=== PATIENT | female | born 1965 ===

== ENCOUNTER 2017-10-18 07:08 | Observation (INO) | payer OTHER ==
[2017-10-18] MEDS ORDERED: Sodium Chloride 0.9% 1,000 ML IV STA (08:06)
--- NOTE | 2017-10-18 08:10 | ED PDOC ---
HPI: Influenza Time Seen by Provider: 10/18/17 07:38 Chief Complaint: Cough, Cold, Congestion Past Medical History Vital Signs: Last Vital Signs Temp 97 F L 10/18/17 07:33 Pulse 78 10/18/17 07:33 Resp 17 10/18/17 07:33 BP 155/81 H 10/18/17 07:33 Pulse Ox 98 10/18/17 07:33 - Medical History PMH: HTN Denies: Chronic Kidney Disease - Family History Family History: States: Hypertension - Home Medications Home Medications: Ambulatory Orders Medication Instructions Recorded Lisinopril [Zestril] 10 mg PO DAILY #30 tablet 01/10/16 [place]-3 Fatty Acids/Fish Oil [Fish 1 cap PO DAILY 01/10/16 Oil 1,000 mg Capsule] - Allergies Allergies/Adverse Reactions: Allergies Allergy/AdvReac Type Severity Reaction Status Date / Time No Known Allergies Allergy Verified 10/18/17 07:33 - ECG O2 Sat by Pulse Oximetry: 98 Disposition - Disposition
--- NOTE | 2017-10-18 08:12 | ED PDOC ---
HPI: Chest Pain Time Seen by Provider: 10/18/17 07:38 Chief Complaint (Nursing): Cough, Cold, Congestion Chief Complaint (Provider): Chest Pain and Headache History Per: Patient History/Exam Limitations: no limitations Onset/Duration Of Symptoms: Days (x yesterday) Current Symptoms Are (Timing): Still Present Additional Complaint(s): Ms. Woods is a 52 year old female who presents to the ED complaining of headache and chest pain since yesterday. Patient states she ran out of her medications for her high blood pressure since Thursday (3 days ago). Denies nausea , vomiting, diarrhea, respiratory problems, leg pain, abdominal pain. Patient states she is pre-diabetic. Denies allergies to any medications. Headaches is mild and frontal. No numbness, tingles, weakness. PMD: No Family Provider Past Medical History Reviewed: Historical Data, Nursing Documentation, Vital Signs Vital Signs: Last Vital Signs Temp 97 F L 10/18/17 07:33 Pulse 78 10/18/17 07:33 Resp 17 10/18/17 07:33 BP 155/81 H 10/18/17 07:33 Pulse Ox 98 10/18/17 10:36 - Medical History PMH: Diabetes (Pre-Diabetic), HTN Denies: Chronic Kidney Disease - Surgical History Surgical History: No Surg Hx - Family History Family History: States: Hypertension - Home Medications Home Medications: Ambulatory Orders Medication Instructions Recorded Lisinopril [Zestril] 10 mg PO DAILY #30 tablet 01/10/16 [place]-3 Fatty Acids/Fish Oil [Fish 1 cap PO DAILY 01/10/16 Oil 1,000 mg Capsule] - Allergies Allergies/Adverse Reactions: Allergies Allergy/AdvReac Type Severity Reaction Status Date / Time No Known Allergies Allergy Verified 10/18/17 07:33 Review of Systems ROS Statement: Except As Marked, All Systems Reviewed And Found Negative Cardiovascular: Positive for: Chest Pain Respiratory: Negative for: Cough, Shortness of Breath Gastrointestinal: Negative for: Nausea, Vomiting, Abdominal Pain, Diarrhea Musculoskeletal: Negative for: Leg Pain Neurological: Positive for: Headache Physical Exam - Reviewed Nursing Documentation Reviewed: Yes Vital Signs Reviewed: Yes - Physical Exam Appears: Positive for: Non-toxic Head Exam: Positive for: ATRAUMATIC, NORMAL INSPECTION, NORMOCEPHALIC Skin: Positive for: Normal Color, Warm, Dry Eye Exam: Positive for: Normal appearance, EOMI, PERRL ENT: Positive for: Normal ENT Inspection Neck: Positive for: Normal Cardiovascular/Chest: Positive for: Regular Rate, Rhythm Respiratory: Positive for: Normal Breath Sounds. Negative for: Respiratory Distress Gastrointestinal/Abdominal: Positive for: Normal Exam, Soft. Negative for: Tenderness Back: Positive for: Normal Inspection Extremity: Positive for: Normal ROM. Negative for: Deformity Neurologic/Psych: Positive for: Alert, Oriented (x 3) - Laboratory Results Result Diagrams: 10/18/17 08:05 10/18/17 08:05 Interpretation Of Abn Labs: 3.4 k - ECG ECG: Positive for: Interpreted By Me, Viewed By Me ECG Rhythm: Positive for: Normal QRS, Normal ST Segment, Sinus Rhythm O2 Sat by Pulse Oximetry: 98 (RA) Pulse Ox Interpretation: Normal - Radiology X-Ray: Read By Radiologist X-Ray Interpretation: No Acute Disease - Progress ED Course And Treament: 1046: Stable. AAOx3. Pain free. Will eval for acs. [facility] resident will admit for eval. Medical Decision Making Medical Decision Making: Time: 08:05 Plan: - EKG - CMP - Troponin I - CBC - Partial Thromboplastin Time - Prothrombin Time - Portable Chest X-Ray - Aspirin 325 mg PO ONCE - Sodium Chloride 0.9% 1,000 ml IV 1,000 mls/hr Time: 09:11 Portable Chest X-Ray FINDINGS: LUNGS: Left apical pleural thickening with adjacent fibronodular scarring changes ; rule out prior exposure to granulomatous disease process PLEURA: No significant pleural effusion identified, no pneumothorax apparent. CARDIOVASCULAR: Heart appears enlarged. OSSEOUS STRUCTURES: No significant abnormalities. VISUALIZED UPPER ABDOMEN: Normal. OTHER FINDINGS: None. IMPRESSION: Persistent left apical pleural thickening and adjacent fibronodular scarring changes left lung unchanged. Rule out prior exposure to granulomatous disease process. Scribe Attestation: Documented by Noman Cortes, acting as a scribe for Marco A Walsh MD. Provider Scribe Attestation: All medical record entries made by the Scribe were at my direction and personally dictated by me. I have reviewed the chart and agree that the record accurately reflects my personal performance of the history, physical exam, medical decision making, and the department course for this patient. I have also personally directed, reviewed, and agree with the discharge instructions and disposition. Disposition - Clinical Impression Clinical Impression: Chest pain - Patient ED Disposition Is Patient to be Admitted: Yes Counseled Patient/Family Regarding: Studies Performed, Diagnosis - Disposition Disposition Time: 10:47 Condition: FAIR - Pt Status Changed To: Hospital Disposition Of: Observation - POA Present On Arrival: None
[2017-10-18 08:28] LABS: ALBUMIN 4.1 g/dL (3.5-5.0); ALT/SGPT 42 U/L (9-52); AST/SGOT 23 U/L (14-36); BLOOD UREA NITROGEN 17 mg/dl (7-17); CALCIUM 9.3 mg/dL (8.4-10.2); GFR AFRICAN-AMERICAN > 60; GFR NON-AFRICAN AMERICAN > 60
[2017-10-18 08:29] LABS: BASO # 0.1 K/uL (0.0-0.2); BASO % 0.8 % (0.0-2.0); EOS # 0.4 K/uL (0.0-0.7); EOS % 4.8 % (0.0-4.0); HEMOGLOBIN 13.4 g/dL (12.0-16.0); LYMPH # 2.8 K/uL (1.0-4.3); LYMPH % 32.9 % (20.0-40.0); MEAN CELL VOLUME 88.5 fl (81.0-99.0); MEAN CORPUSCULAR HEMOGLOBIN 29.9 pg (27.0-31.0); MEAN CORPUSCULAR HGB CONC 33.8 g/dL (33.0-37.0); MEAN PLATELET VOLUME 8.7 fl (7.2-11.7); MONO # 0.6 K/uL (0.0-0.8); MONO % 6.6 % (0.0-10.0); NEUT # 4.6 K/uL (1.8-7.0); NEUT % 54.9 % (50.0-75.0); NRBC % 0.1 % (0.0-0.0); RBC 4.49 Mil/uL (3.80-5.20); WHITE BLOOD COUNT 8.4 K/uL (4.8-10.8)
[2017-10-18 08:34] LABS: PROTHROMBIN TIME 10.3 Seconds (9.8-13.1)
[2017-10-18 08:35] LABS: INR 0.9 (0.9-1.2)
--- NOTE | 2017-10-18 09:12 | RAD ---
HISTORY: chest pain COMPARISON: Comparison chest 01/10/2016 FINDINGS: LUNGS: Left apical pleural thickening with adjacent fibronodular scarring changes ; rule out prior exposure to granulomatous disease process PLEURA: No significant pleural effusion identified, no pneumothorax apparent. CARDIOVASCULAR: Heart appears enlarged. OSSEOUS STRUCTURES: No significant abnormalities. VISUALIZED UPPER ABDOMEN: Normal. OTHER FINDINGS: None. IMPRESSION: Persistent left apical pleural thickening and adjacent fibronodular scarring changes left lung unchanged. Rule out prior exposure to granulomatous disease process.
[2017-10-18] MEDS ORDERED: Potassium Chloride 20 mEq ER Tab PO ONE ×2 (10:32→12:11)
--- NOTE | 2017-10-18 12:46 | CP.PCM.HP ---
History of Present Illness - History of Present Illness History of Present Illness: 52 y/o female with history of HTN on 2 medications (lisinopril 20mg and Chlorthalidone 25mg) presenting to ED with complaints of headache and chest pain that started yesterday because she has not been taking her BP medication since she ran out on Thursday. when asked which medication she ran out of she provided a empty bottle of Chlorthalidone 25mg; pt's last visit to [facility] was . there has been no telephone encounters for BP medications, yet pt medication was last filled in 08/2017. Reports symptoms since improved, denies any associated dizziness, nausea, vomiting, sob, palpitations. PCP- Dr. Jinny Champagne PMHx- HTN PSHx- Tubal ligation Allergies- NKDA Present on Admission - Present on Admission Any Indicators Present on Admission: No Review of Systems - Review of Systems All systems: reviewed and no additional remarkable complaints except Review of Systems: except improved chest pain and resolved headache, all system reviewed and negative Past Patient History - Infectious Disease Hx of Infectious Diseases: None - Past Medical History & Family History Past Medical History?: Yes - Past Social History Smoking Status: Never Smoked - CARDIAC Hx Cardiac Disorders: Yes (HTN) - PULMONARY Hx Respiratory Disorders: No - NEUROLOGICAL Hx Neurological Disorder: No - HEENT Hx HEENT Problems: No - RENAL Hx Chronic Kidney Disease: No - ENDOCRINE/METABOLIC Hx Endocrine Disorders: Yes (PRE DM) - HEMATOLOGICAL/ONCOLOGICAL Hx Blood Disorders: No - INTEGUMENTARY Hx Dermatological Problems: No - MUSCULOSKELETAL/RHEUMATOLOGICAL Hx Musculoskeletal Disorders: No - GASTROINTESTINAL Hx Gastrointestinal Disorders: No - GENITOURINARY/GYNECOLOGICAL Hx Genitourinary Disorders: No - PSYCHIATRIC Hx Psychophysiologic Disorder: No - SURGICAL HISTORY Hx Surgeries: Yes Hx Tubal Ligation: Yes - ANESTHESIA Hx Anesthesia: Yes Hx Anesthesia Reactions: No Hx Malignant Hyperthermia: No Meds Allergies/Adverse Reactions: Allergies Allergy/AdvReac Type Severity Reaction Status Date / Time No Known Allergies Allergy Verified 10/18/17 07:33 Physical Exam - Constitutional Appears: Non-toxic, No Acute Distress - Head Exam Head Exam: NORMOCEPHALIC - Eye Exam Eye Exam: Normal appearance - ENT Exam ENT Exam: Mucous Membranes Moist - Respiratory Exam Respiratory Exam: Clear to Auscultation Bilateral, NORMAL BREATHING PATTERN. absent: Wheezes - Cardiovascular Exam Cardiovascular Exam: REGULAR RHYTHM, +S1, +S2 - GI/Abdominal Exam GI & Abdominal Exam: Normal Bowel Sounds, Soft. absent: Tenderness - Extremities Exam Extremities exam: Negative for: calf tenderness, pedal edema - Neurological Exam Neurological exam: Alert, CN II-XII Intact, Oriented x3 - Skin Skin Exam: Dry Results - Vital Signs Recent Vital Signs: Last Vital Signs Temp 97.2 F L 10/18/17 12:18 Pulse 70 10/18/17 12:14 Resp 17 10/18/17 11:02 BP 149/95 H 10/18/17 12:14 Pulse Ox 99 10/18/17 12:18 - Labs Result Diagrams: 10/18/17 08:05 10/18/17 08:05 Labs: Laboratory Results - last 24 hr 10/18/17 10/18/17 10/18/17 08:05 08:05 08:05 WBC 8.4 RBC 4.49 Hgb 13.4 Hct 39.7 MCV 88.5 MCH 29.9 MCHC 33.8 RDW 14.0 Plt Count 257 MPV 8.7 Neut % (Auto) 54.9 Lymph % (Auto) 32.9 Hand % (Auto) 6.6 Eos % (Auto) 4.8 H Baso % (Auto) 0.8 Neut # (Auto) 4.6 Lymph # (Auto) 2.8 Hand # (Auto) 0.6 Eos # (Auto) 0.4 Baso # (Auto) 0.1 PT 10.3 INR 0.9 APTT 37.0 Sodium 143 Potassium 3.4 L Chloride 107 Carbon Dioxide 23 Anion Gap 16 BUN 17 Creatinine 0.6 L Est GFR ( Amer) > 60 Est GFR (Non-Af Amer) > 60 Random Glucose 89 Calcium 9.3 Total Bilirubin 0.9 AST 23 ALT 42 Alkaline Phosphatase 75 Troponin I < 0.0120 Total Protein 8.3 H Albumin 4.1 Globulin 4.2 H Albumin/Globulin Ratio 1.0 Assessment & Plan - Assessment and Plan (Free Text) Assessment: 52 y/o female with history of uncontrolled HTN presenting with chest pain and headache Plan: 1. chest pain r/o ACS -trop x1 negative no acute changes on EKG repeat trops x2 will start on aspirin 2. Uncontrolled HTN Pt restarted on home medication monitor BPs 3. Diet Hearty healthy 4. DVt prophylaxis- lovenox 40mg SC
[2017-10-19 05:46] VITALS: RESP 18
[2017-10-19] MEDS ORDERED: Pneumococcal 23-Valent Vaccine IM ONE (06:00)
[2017-10-19 06:28] LABS: BLOOD UREA NITROGEN 16 mg/dl (7-17); GFR AFRICAN-AMERICAN > 60; GFR NON-AFRICAN AMERICAN > 60
--- NOTE | 2017-10-19 08:57 | CP.PCM.PN ---
Subjective - Date & Time of Evaluation Date of Evaluation: 10/19/17 Time of Evaluation: 08:51 - Subjective Subjective: 52F with PMH HTN seen at bedside for headache and chest pain. Patient presented to ED yesterday with these symptoms and stated that she had not taken either of her anti-hypertensive medications in three days because she ran out of both. Patient is AAO x 3 and NAD, resting comfortably in bed at time of visit. States that her chest pain is completely resolved at this time and also states that her headache is still present without any secondary symptoms including blurry vision, dizziness. Patient also relates that she stopped having regular monthly menses two years ago but has noticed spotting on her underwear for the last three days except for today. Denies any further complaints at this time. Denies any recent N/V/F/C/SOB/D/posterior calf pain when squeezed. Objective - Vital Signs/Intake and Output Vital Signs (last 24 hours): Temp Pulse Resp BP Pulse Ox 97.6 F 68 18 129/87 97 10/19/17 08:03 10/19/17 08:03 10/19/17 08:03 10/19/17 08:03 10/19/17 08:03 - Medications Medications: Current Medications Acetaminophen (Tylenol 325mg Tab) 650 mg PO Q6 PRN PRN Reason: Pain, Mild (1-3) Last Admin: 10/19/17 06:51 Dose: 650 mg Chlorthalidone (Hygroton) 25 mg PO DAILY [facility] Last Admin: 10/18/17 13:16 Dose: 25 mg Enoxaparin Sodium (Lovenox) 40 mg SC DAILY [facility] PRN Reason: Protocol Lisinopril (Zestril) 10 mg PO DAILY [facility] Last Admin: 10/18/17 12:14 Dose: 10 mg Cbwiz-[id number] Ethyl Esters (Lovaza) 1 gm PO DAILY [facility] Potassium Chloride (K-Dur 20 Meq Er Tab) 20 meq PO DAILY [facility] - Labs Labs: 10/18/17 08:05 10/19/17 04:20 PT 10.3 Seconds (9.8-13.1) 10/18/17 08:05 INR 0.9 (0.9-1.2) 10/18/17 08:05 APTT 37.0 Seconds (25.6-37.1) 10/18/17 08:05 - Constitutional Appears: Well, Non-toxic, No Acute Distress - Head Exam Head Exam: ATRAUMATIC, NORMOCEPHALIC - Eye Exam Eye Exam: EOMI, PERRL Pupil Exam: PERRL - ENT Exam ENT Exam: Mucous Membranes Moist - Respiratory Exam Respiratory Exam: NORMAL BREATHING PATTERN - GI/Abdominal Exam GI & Abdominal Exam: absent: Distended, Firm, Guarding, Rigid - Rectal Exam Rectal Exam: Deferred - Extremities Exam Extremities Exam: Normal Capillary Refill, Normal Inspection - Neurological Exam Neurological Exam: Alert, Awake, Oriented x3 - Psychiatric Exam Psychiatric exam: Normal Affect, Normal Mood - Skin Skin Exam: Intact, Normal Color, Warm Assessment and Plan - Assessment and Plan (Free Text) Assessment: 52 year old female with PMH HTN seen for chest pain, headache and irregular menstrual spotting Plan: 1. Chest pain r/o ACS -Troponins negative x3 - No acute changes on EKG - Chest X-ray: Persistent L apical pleural thickening and adjacent fibronodular scarring change L lung unchanged. Rule out prior exposure to granulomatous disease process 2. Uncontrolled HTN - Pt restarted on home medication (Chlorthalidone 25 mg PO daily MICHAEL, Lisinopril 10 mg PO daily) - Asymptomatic - Last BP 129/87 - Continue to monitor BPs 3. Irregular menses - H/H WNL - Asymptomatic - Resolving - Monitor 4. Hypokalemia - K+ 3.3 - K-dur 20 mEq ER PO daily 5. Diet - Hearty healthy 6. DVT prophylaxis - Lovenox 40mg SC
[2017-10-19] MEDS ORDERED: Potassium Chloride 20 mEq ER Tab PO SCH (09:00)
[2017-10-19] MEDS ORDERED: Enoxaparin 40 mg Syringe SC SCH (09:00)
[2017-10-19] MEDS ORDERED: Omega-3-Acid Ethyl Esters 1 GM Cap PO SCH (09:00)
--- NOTE | 2017-10-19 10:35 | CARD ---
APPROVED REPORT EKG Measurement Heart [id number] <Conclusion> Normal sinus rhythm ST & T wave abnormality, consider anterolateral and inferior ischemia Prolonged QT Abnormal ECG
[2017-10-19 12:38] VITALS: BP 117/75; PULSE 69; TEMP 98.3; O2SAT 96
--- NOTE | 2017-10-19 12:44 | CP.PCM.DIS ---
Provider - Provider Date of Admission: 10/18/17 10:47 Attending physician: Carrol Bañuelos MD Primary care physician: Family Physician: Jinny Champagne MD Time Spent in preparation of Discharge (in minutes): 45 Diagnosis - Discharge Diagnosis (1) Chest pain Status: Acute Comment: 52 year old female with PMH HTN admitted for new onset chest pain and headache to rule out ACS. Patient had not been taking at home antihypertensives and was restarted on them in house. Troponins negative x 3, EKG and CXR show no acute changes. Symptoms relieved with restart of at home medications. Vital signs stable and patient ok for discharge home Hospital Course - Lab Results Lab Results: Most Recent Lab Values WBC 8.4 K/uL (4.8-10.8) 10/18/17 08:05 RBC 4.49 Mil/uL (3.80-5.20) 10/18/17 08:05 Hgb 13.4 g/dL (12.0-16.0) 10/18/17 08:05 Hct 39.7 % (34.0-47.0) 10/18/17 08:05 MCV 88.5 fl (81.0-99.0) 10/18/17 08:05 MCH 29.9 pg (27.0-31.0) 10/18/17 08:05 MCHC 33.8 g/dL (33.0-37.0) 10/18/17 08:05 RDW 14.0 % (11.5-14.5) 10/18/17 08:05 Plt Count 257 K/uL (130-400) 10/18/17 08:05 MPV 8.7 fl (7.2-11.7) 10/18/17 08:05 Neut % (Auto) 54.9 % (50.0-75.0) 10/18/17 08:05 Lymph % (Auto) 32.9 % (20.0-40.0) 10/18/17 08:05 Vance % (Auto) 6.6 % (0.0-10.0) 10/18/17 08:05 Eos % (Auto) 4.8 % (0.0-4.0) H 10/18/17 08:05 Baso % (Auto) 0.8 % (0.0-2.0) 10/18/17 08:05 Neut # (Auto) 4.6 K/uL (1.8-7.0) 10/18/17 08:05 Lymph # (Auto) 2.8 K/uL (1.0-4.3) 10/18/17 08:05 Vance # (Auto) 0.6 K/uL (0.0-0.8) 10/18/17 08:05 Eos # (Auto) 0.4 K/uL (0.0-0.7) 10/18/17 08:05 Baso # (Auto) 0.1 K/uL (0.0-0.2) 10/18/17 08:05 PT 10.3 Seconds (9.8-13.1) 10/18/17 08:05 INR 0.9 (0.9-1.2) 10/18/17 08:05 APTT 37.0 Seconds (25.6-37.1) 10/18/17 08:05 Sodium 140 mmol/l (132-148) 10/19/17 04:20 Potassium 3.3 MMOL/L (3.6-5.0) L 10/19/17 04:20 Chloride 102 mmol/L (98-107) 10/19/17 04:20 Carbon Dioxide 26 mmol/L (22-30) 10/19/17 04:20 Anion Gap 15 (10-20) 10/19/17 04:20 BUN 16 mg/dl (7-17) 10/19/17 04:20 Creatinine 0.6 mg/dl (0.7-1.2) L 10/19/17 04:20 Est GFR ( Amer) > 60 10/19/17 04:20 Est GFR (Non-Af Amer) > 60 10/19/17 04:20 Random Glucose 92 mg/dL (65-105) 10/19/17 04:20 Calcium 9.0 mg/dL (8.4-10.2) 10/19/17 04:20 Total Bilirubin 0.9 mg/dl (0.2-1.3) 10/18/17 08:05 AST 23 U/L (14-36) 10/18/17 08:05 ALT 42 U/L (9-52) 10/18/17 08:05 Alkaline Phosphatase 75 U/L (38-126) 10/18/17 08:05 Troponin I 0.0150 ng/mL (0.00-0.120) 10/19/17 00:10 Total Protein 8.3 G/DL (6.3-8.2) H 10/18/17 08:05 Albumin 4.1 g/dL (3.5-5.0) 10/18/17 08:05 Globulin 4.2 gm/dL (2.2-3.9) H 10/18/17 08:05 Albumin/Globulin Ratio 1.0 (1.0-2.1) 10/18/17 08:05 - Hospital Course Hospital Course: 52F seen in ED on 10/18 complaining of three day headache and chest pain. Patient states that she ran out of her at home antihypertensive medications ( Lisiniopril 20mg and Chlorthalidone 25 mg). Upon restarting at home medications , patient's symptoms were relieved. Patient also given Tylenol 650 mg PO q6 prn mild pain, Lovenox 40 mg SC daily MICHAEL for DVT prophylaxis, Lovaza 20 mEq PO daily and Potassium Chloride 20 mEq PO daily for hypokalemia. Chest x-ray and EKG show no acute changes at this time. Vital signs stable at this time. Patient stable for DC home. Patient's pharmacy was contacted and patient had a prescription from 09/29/17 that was never picked up Patient given Rx Lisinopril 10 mg PO daily, Chlorthalidone 25 mg PO daily Patient to follow up with Dr. Desouza at [facility] on 10/30/17 at 3 pm - Date & Time of H&P Date of H&P: 10/19/17 Time of H&P: 12:59 Discharge Exam - Head Exam Head Exam: ATRAUMATIC, NORMOCEPHALIC - Eye Exam Eye Exam: EOMI, PERRL Pupil Exam: PERRL - ENT Exam ENT Exam: Mucous Membranes Moist - Respiratory Exam Respiratory Exam: UNREMARKABLE - Cardiovascular Exam Cardiovascular Exam: REGULAR RHYTHM - GI/Abdominal Exam GI & Abdominal Exam: absent: Distended, Firm, Guarding, Rigid, Tenderness - Rectal Exam Rectal Exam: Deferred - Extremities Exam Extremities exam: normal capillary refill, normal inspection - Neurological Exam Neurological exam: Alert, Oriented x3 - Psychiatric Exam Psychiatric exam: Normal Affect, Normal Mood - Skin Skin Exam: Intact, Normal Color, Warm Discharge Plan - Discharge Medications Prescriptions: Chlorthalidone [Hygroton] 1 tab PO DAILY #30 tab Lisinopril [Zestril] 10 mg PO DAILY #30 tablet - Follow Up Plan Condition: FAIR Disposition: HOME/ ROUTINE Instructions: Chest Pain (DC) Additional Instructions: follow up in 1 week. Referrals: Natalee Desouza MD [Resident] - 10/30/17 3:00 pm
== END 2017-10-19 13:34 | disposition home or self-care (01) ==
LOC: H.ER 07:08 → H.ERHOLD 10:47 → H.TEL 18:28
PROVIDERS: ADMIT Family Medicine Geriatric Medicine; ATTEND Family Medicine Geriatric Medicine
DX: R07.89 Other chest pain (principal); E87.6 Hypokalemia; I10 Essential (primary) hypertension; R73.03 Prediabetes; Z98.51 Tubal ligation status; Z79.899 Other long term (current) drug therapy; Z23 Encounter for immunization
CPT/HCPCS: 36415; 71045; 80048; 80053; 84484; 85025; 85610; 85730; 90471; 90732; 93005; 96360; 99285; G0378; J1650; J7040